=== PATIENT | female | born 1985 | race Caucasian/White ===

== ENCOUNTER 2021-07-31 18:29 | Emergency (ER) | payer BC ==
[~2021-07-31] VITALS: Ht 162.6 cm; Wt 81.6 kg
--- NOTE | 2021-07-31 20:00 | NUR ---
Patient waiting in car due to no beds available in the ER. Patient with no distress at this time.
--- NOTE | 2021-07-31 22:45 | NUR ---
Patient just placed in room 3 due to no beds available in the ER. DR Tovar into eval patient.
--- NOTE | 2021-07-31 22:48 | NUR ---
Patient arrived at the ER with complain of chest discomfort and SOB. Was swab for COVID and is positive.
--- NOTE | 2021-07-31 22:50 | NUR ---
Dr. Tovar on bedside for MSE.
--- NOTE | 2021-07-31 23:07 | NUR ---
Patient discharged to home in stable condition. Written and verbal after care instructions given. Patient verbalizes understanding of instructions. Stressed follow up or return to ER for worsening s/s. Patient ambulated fr the ER with steady gait. All belongings with patient.
[2021-07-31 23:08] VITALS: BP 112/80
== END 2021-07-31 23:09 | disposition home or self-care (01) ==
LOC: ER 18:36 → MERGE 18:36 → ER 23:09
DX: U07.1 COVID-19 (principal); Z87.891 Personal history of nicotine dependence
CPT/HCPCS: 87400; A4663